=== PATIENT | male | born 1995 | race Caucasian/White ===

== ENCOUNTER 2019-11-09 20:07 | Emergency (ER) | payer OTHER ==
[~2019-11-09] VITALS: Ht 195.6 cm; Wt 81.7 kg
[~2019-11-09 20:07] MED LIST: NOHOMEMEDICATIONS
[2019-11-09 20:57] LABS: ABSOLUTE EOSINOPHILS 0.2 thou/uL (0.0-0.7); ABSOLUTE LYMPHOCYTES 1.7 thou/uL (0.8-5.3); ABSOLUTE MONOCYTES 0.9 thou/uL (0.0-1.2); ABSOLUTE NEUTROPHILS 4.8 thou/uL (1.6-8.1); BASOPHILS 0.5 %; EOSINOPHILS 2.3 %; HEMOGLOBIN 14.4 gm/dL (14.0-18.0); LYMPHOCYTES 22.6 %; MCH 28.1 pg (26.0-34.0); MCHC 34.2 g/dL (28.0-37.0); MCV 82.1 fL (80.0-100.0); MONOCYTES 11.5 %; MPV 8.8 fl. (7.2-11.1); NUCLEATED RBCS 0 /100WBC; PLATELET COUNT* 266 thou/uL (150-400); POLYS 63.1 %; RBC 5.12 mil/uL (4.50-6.00); RDW-CV 14.1 % (10.5-14.5); WBC 7.6 thou/uL (4.0-11.0)
[2019-11-09 21:04] LABS: POTASSIUM 3.9 mmol/L (3.5-5.1)
[2019-11-09 21:07] LABS: INR 1.1; PROTIME 10.8 Seconds (9.20-11.50)
[2019-11-09 21:09] LABS: ALBUMIN 4.2 g/dL (3.4-5.0); TOTAL BILIRUBIN 0.3 mg/dL (<0.1-1.0); TOTAL PROTEIN 8.2 g/dL (6.4-8.2)
[2019-11-09 21:12] LABS: URINE BILIRUBIN NEGATIVE (Negative); URINE BLOOD NEGATIVE (Negative); URINE CLARITY CLEAR; URINE COLOR YELLOW; URINE GLUCOSE-RANDOM NEGATIVE (Negative); URINE KETONES NEGATIVE (Negative); URINE LEUKOCYTES-REFLEX NEGATIVE (Negative); URINE NITRITE-REFLEX NEGATIVE (Negative); URINE PROTEIN NEGATIVE (Negative); URINE SPECIFIC GRAVITY 1.025 (1.005-1.030); URINE UROBILINOGEN 0.2 E.U./dl (0.2-1.0)
[2019-11-09] MEDS ORDERED: AMOXICILLIN875 MG PO ×2 (22:28→22:30)
[2019-11-09] MEDS ORDERED: AZITHROMYCIN 2250 MG PO (22:28)
[2019-11-09 22:43] VITALS: BP 161/89
--- NOTE | 2019-11-10 15:38 | EKG ---
[place] [address] ELECTROCARDIOGRAM REPORT Name: ELADIO BENITO Room: [facility]#: [id number] Admission: 11/09/19 Attend Phys: Discharge: 11/09/19 Date of : [birth year] Report #: [id number] THIS REPORT FOR: //name// [facility] ED Test Date: 2019-11-09 Test Time: 20:44:33 Pat Name: ELADIO BENITO Department: Room: Gender: M Feeder Tender: JUANCHO : 1995 Requested By: Terra Tian Order Number: [id number] MD: Albert Choi Measurements Intervals [place] Rate: 98 P: 49 MN: 193 QRS: 60 QRSD: 102 T: 45 QT: 366 QTc: 468 Interpretive Statements Sinus rhythm Probable left atrial enlargement ST elev, probable normal early repol pattern Baseline wander in lead(s) V2 No previous ECG available for comparison Electronically Signed On 11-10-2019 15:38:11 SKIN TOGGLER by Albert Choi [email or web address] <ELECTRONICALLY SIGNED> By: Albert Choi MD, [facility] 11/10/19 [id number] Albert Choi MD, FACC /EPI
== END 2019-11-09 22:44 | disposition home or self-care (01) ==
LOC: M.ERS 20:07
PROVIDERS: Personal Emergency Response Attendant
DX: J40 Bronchitis, not specified as acute or chronic (principal)

== ENCOUNTER 2021-04-22 16:39 | Emergency (ER) | payer OTHER ==
[~2021-04-22] VITALS: Ht 195.6 cm; Wt 90.7 kg
[~2021-04-22 16:39] MED LIST changes: +AMOXICILLIN875 MG PO; +AZITHROMYCIN 2250 MG PO
[2021-04-22 17:16] LABS: ABSOLUTE EOSINOPHILS 0.3 thou/uL (0.0-0.7); ABSOLUTE LYMPHOCYTES 1.3 thou/uL (0.8-5.3); ABSOLUTE MONOCYTES 1.5 thou/uL (0.0-1.2); ABSOLUTE NEUTROPHILS 7.6 thou/uL (1.6-8.1); BASOPHILS 0.4 %; EOSINOPHILS 2.4 %; HEMATOCRIT 40.8 % (42.0-52.0); HEMOGLOBIN 13.8 gm/dL (14.0-18.0); LYMPHOCYTES 12.3 %; MCH 27.7 pg (26.0-34.0); MCHC 33.7 g/dL (28.0-37.0); MCV 81.9 fL (80.0-100.0); MONOCYTES 13.7 %; MPV 8.7 fl. (7.2-11.1); NUCLEATED RBCS 0 /100WBC; PLATELET COUNT* 277 thou/uL (150-400); POLYS 71.2 %; RBC 4.98 mil/uL (4.50-6.00); RDW-CV 14.2 % (10.5-14.5); WBC 10.7 thou/uL (4.0-11.0)
[2021-04-22 17:24] LABS: CALCIUM 9.3 mg/dL (8.5-10.1); CREATININE 1.1 mg/dL (0.6-1.3); POTASSIUM 4.1 mmol/L (3.5-5.1)
[2021-04-22 17:29] LABS: ALBUMIN 4.5 g/dL (3.4-5.0); TOTAL BILIRUBIN 0.3 mg/dL (<0.1-1.0); TOTAL PROTEIN 8.6 g/dL (6.4-8.2)
[2021-04-22] MEDS ORDERED: ONDANSETRON HCL4 M2 PO (17:48)
[2021-04-22 18:10] VITALS: BP 152/94
== END 2021-04-22 18:10 | disposition home or self-care (01) ==
LOC: M.ERS 16:39
PROVIDERS: Physician Assistant
DX: R11.2 Nausea with vomiting, unspecified (principal); Z20.822 Contact with and (suspected) exposure to COVID-19

== ENCOUNTER 2021-05-27 19:47 | Emergency (ER) | payer OTHER ==
[~2021-05-27] VITALS: Ht 195.6 cm; Wt 104.3 kg
[~2021-05-27 19:47] MED LIST changes: +ONDANSETRON HCL4 M2 PO
[2021-05-27 21:02] VITALS: BP 151/87
== END 2021-05-27 21:02 | disposition home or self-care (01) ==
LOC: M.ERS 19:47
DX: J06.9 Acute upper respiratory infection, unspecified (principal); Z20.822 Contact with and (suspected) exposure to COVID-19

== ENCOUNTER 2021-06-10 21:32 | Emergency (ER) | payer OTHER ==
[~2021-06-10] VITALS: Ht 195.6 cm; Wt 104.3 kg
[2021-06-10 22:13] VITALS: BP 157/88
== END 2021-06-10 22:14 | disposition home or self-care (01) ==
LOC: M.ERS 21:32
DX: S83.92XA Sprain of unspecified site of left knee, initial encounter (principal); X50.9XXA Other and unspecified overexertion or strenuous movements or postures, initial encounter; Y93.89 Activity, other specified; Y92.89 Other specified places as the place of occurrence of the external cause; Y99.8 Other external cause status

== ENCOUNTER 2021-10-24 19:56 | Emergency (ER) | payer OTHER ==
[~2021-10-24] VITALS: Ht 195.6 cm; Wt 104.3 kg
[2021-10-24 21:20] VITALS: BP 151/93
== END 2021-10-24 21:20 | disposition home or self-care (01) ==
LOC: M.ERS 19:56
DX: J06.9 Acute upper respiratory infection, unspecified (principal); Z20.822 Contact with and (suspected) exposure to COVID-19